=== PATIENT | female | born 1950 | race Caucasian/White ===

== ENCOUNTER 2018-01-03 11:44 | Inpatient (IN) | payer MEDICARE ==
[~2018-01-03] VITALS: Ht 167.6 cm; Wt 75.0 kg
[2018-01-03 12:18] LABS: APPEARANCE,URINE CLEAR (CLEAR); BILIRUBIN,URINE NEGATIVE (NEGATIVE); COLOR,URINE YELLOW (YELLOW); GLUCOSE, URINE (UA) NEGATIVE (NEGATIVE); KETONES,URINE NEGATIVE (NEGATIVE); LEUKOCYTE ESTERASE ,URINE NEGATIVE (NEGATIVE); NITRATE,URINE NEGATIVE (NEGATIVE); OCCULT BLOOD,URINE SMALL (NEGATIVE); PROTEIN,URINE NEGATIVE (NEGATIVE)
[2018-01-03 13:03] LABS: BASOPHILS % (AUTO) 0.4 % (0.0-5.0); EOSINOPHILS % (AUTO) 0.8 % (0.0-8.0); HEMATOCRIT 39.9 % (36-48); LYMPHOCYTES % (AUTO) 16.8 % (21.0-51.0); MEAN CORPUSCULAR HEMOGLOBIN 31.2 pg (27.0-33.0); MEAN CORPUSCULAR HGB CONC 34.3 g/dL (32.0-36.0); MEAN CORPUSCULAR VOLUME 91.1 fL (79-99); PLATELET COUNT (AUTO) 283 K/uL (130-400); RED BLOOD CELL COUNT(AUTO) 4.38 MIL/uL (4.00-5.50); RED CELL DISTRIBUTION WIDTH 13.4 % (11.0-15.5); WHITE BLOOD COUNT (AUTO) 11.6 K/uL (4.8-10.8)
[2018-01-03 13:07] LABS: BACTERIA,URINE Rare /HPF (None Seen); MUCUS,URINE Few LPF (None Seen); RBC,URINE 0-1 /HPF (0-1); SQUAMOUS EPITHELIAL CELL,UR Rare /HPF (0-2); WBC,URINE 0-1 /HPF (0-1)
[2018-01-03 13:26] LABS: CREATININE 0.7 mg/dL (0.5-1.5)
[2018-01-03 13:33] LABS: ALBUMIN 2.9 g/dL (3.5-5.0); BILIRUBIN,TOTAL 0.3 mg/dL (0.2-1.0); TOTAL PROTEIN, SERUM 6.9 g/dL (6.0-8.3)
[2018-01-03] MEDS ORDERED: ZOSYN 3.375GM+NS 50ML 50 ML IV ONE (14:21)
[2018-01-03] MEDS ORDERED: SODIUM CHLORIDE 0.9% 50 ML IV ONE (14:21)
[2018-01-03] MEDS ORDERED: METRONIDAZOLE 500 MG TABLET ONE (14:40)
[2018-01-03] MEDS ORDERED: ONDANSETRON HCL 4 MG/2 ML VIAL ONE (15:13)
[2018-01-03] MEDS ORDERED: MORPHINE SULFATE 2 MG/ML 1ML SYG ONE (15:13)
[2018-01-03] MEDS ORDERED: ONDANSETRON HCL 4 MG/2 ML VIAL IV PRN (17:00)
[2018-01-03] MEDS ORDERED: MORPHINE SULFATE 2 MG/ML 1ML SYG IV PRN (17:00)
[2018-01-03] MEDS ORDERED: HYDRALAZINE HCL 20 MG/ML VIAL IV PRN (17:00)
[2018-01-03] MEDS ORDERED: KETOROLAC TROMETHAMINE 15MG/ML IV PRN (17:00)
[2018-01-03 20:22] VITALS: BP 121/72
[2018-01-03] MEDS: ZOSYN 3.375GM+NS 50ML 50 ML IV SCH (21:58)
[2018-01-03] MEDS: FAMOTIDINE/PF 20 MG/2 ML VIAL IV SCH (21:58)
[2018-01-03] MEDS: SODIUM CHLORIDE 0.9% 1000ML 1,000 ML IV SCH ×2 (21:59→23:45)
[2018-01-03] MEDS ORDERED: MORPHINE SULFATE 8 MG/ML VIAL ONE (22:57)
[2018-01-03 23:23] VITALS: BP 129/76
[2018-01-04] MEDS ORDERED: MORPHINE SULFATE 5 MG/ML VIAL ONE ×2 (03:40→16:50)
[2018-01-04 03:50] VITALS: BP 127/79
[2018-01-04 04:32] LABS: MEAN CORPUSCULAR HEMOGLOBIN 31.4 pg (27.0-33.0); MEAN CORPUSCULAR HGB CONC 34.2 g/dL (32.0-36.0); MEAN CORPUSCULAR VOLUME 91.8 fL (79-99); PLATELET COUNT (AUTO) 278 K/uL (130-400); RED BLOOD CELL COUNT(AUTO) 3.92 MIL/uL (4.00-5.50); RED CELL DISTRIBUTION WIDTH 13.6 % (11.0-15.5); WHITE BLOOD COUNT (AUTO) 10.5 K/uL (4.8-10.8)
[2018-01-04 04:43] LABS: CREATININE 0.8 mg/dL (0.5-1.5); POTASSIUM 3.9 mmol/L (3.5-5.1)
[2018-01-04] MEDS: ZOSYN 3.375GM+NS 50ML 50 ML IV SCH (06:10)
[2018-01-04 08:00] VITALS: BP 114/70
[2018-01-04] MEDS: FAMOTIDINE/PF 20 MG/2 ML VIAL IV SCH ×2 (08:01→20:41)
[2018-01-04] MEDS: SODIUM CHLORIDE 0.9% 1000ML 1,000 ML IV SCH ×3 (08:01→18:42)
[2018-01-04] MEDS ORDERED: MORPHINE SULFATE 10 MG/ML 1ML VIAL ONE (08:15)
[2018-01-04 11:00] VITALS: BP 133/74
[2018-01-04] MEDS: LEVOFLOXACIN 500 MG/D5W 100 ML 100 ML IV SCH (13:19)
[2018-01-04] MEDS: METRONIDAZOLE 500MG/100ML BAG 100 ML IV SCH ×2 (15:39→22:41)
[2018-01-04 16:00] VITALS: BP 117/69
[2018-01-04 19:15] VITALS: BP 113/57
[2018-01-04] MEDS ORDERED: CLONAZEPAM 0.5 MG TABLET PO PRN (21:00)
[2018-01-04] MEDS ORDERED: CLONAZEPAM 0.5 MG TABLET ONE (21:06)
[2018-01-04 23:05] VITALS: BP 107/51
[2018-01-05 03:05] VITALS: BP 114/65
[2018-01-05 05:12] LABS: BASOPHILS % (AUTO) 0.9 % (0.0-5.0); EOSINOPHILS % (AUTO) 0.4 % (0.0-8.0); HEMATOCRIT 35.3 % (36-48); LYMPHOCYTES % (AUTO) 15.2 % (21.0-51.0); MEAN CORPUSCULAR HEMOGLOBIN 30.6 pg (27.0-33.0); MEAN CORPUSCULAR HGB CONC 33.4 g/dL (32.0-36.0); MEAN CORPUSCULAR VOLUME 91.5 fL (79-99); MONOCYTES % (AUTO) 6.1 % (3.0-13.0); NEUTROPHILS % (AUTO) 77.4 % (40.0-77.0); PLATELET COUNT (AUTO) 273 K/uL (130-400); RED BLOOD CELL COUNT(AUTO) 3.86 MIL/uL (4.00-5.50); RED CELL DISTRIBUTION WIDTH 13.5 % (11.0-15.5); WHITE BLOOD COUNT (AUTO) 12.1 K/uL (4.8-10.8)
[2018-01-05 05:26] LABS: CREATININE 0.7 mg/dL (0.5-1.5)
[2018-01-05] MEDS: METRONIDAZOLE 500MG/100ML BAG 100 ML IV SCH ×3 (06:14→22:24)
[2018-01-05 07:40] VITALS: BP 126/74
[2018-01-05 08:14] LABS: BASOPHILS % (AUTO) 0.2 % (0.0-5.0); EOSINOPHILS % (AUTO) 0.4 % (0.0-8.0); HEMATOCRIT 40.1 % (36-48); LYMPHOCYTES % (AUTO) 13.9 % (21.0-51.0); MEAN CORPUSCULAR HEMOGLOBIN 30.8 pg (27.0-33.0); MEAN CORPUSCULAR HGB CONC 33.5 g/dL (32.0-36.0); MEAN CORPUSCULAR VOLUME 91.9 fL (79-99); MONOCYTES % (AUTO) 6.1 % (3.0-13.0); NEUTROPHILS % (AUTO) 79.4 % (40.0-77.0); PLATELET COUNT (AUTO) 328 K/uL (130-400); RED BLOOD CELL COUNT(AUTO) 4.36 MIL/uL (4.00-5.50); RED CELL DISTRIBUTION WIDTH 13.1 % (11.0-15.5)
[2018-01-05 08:29] LABS: CREATININE 0.8 mg/dL (0.5-1.5)
[2018-01-05] MEDS: SODIUM CHLORIDE 0.9% 1000ML 1,000 ML IV SCH ×3 (08:45→23:53)
[2018-01-05] MEDS: FAMOTIDINE/PF 20 MG/2 ML VIAL IV SCH ×2 (11:14→20:15)
[2018-01-05 11:39] VITALS: BP 130/71
[2018-01-05] MEDS: LEVOFLOXACIN 500 MG/D5W 100 ML 100 ML IV SCH (12:49)
[2018-01-05 16:00] VITALS: BP 129/71
[2018-01-05] MEDS ORDERED: ACETAMINOPHEN 325 MG TAB PO PRN (16:00)
[2018-01-05 20:12] VITALS: BP 131/77
[2018-01-06 00:12] VITALS: BP 110/58
[2018-01-06 04:12] VITALS: BP 133/74
[2018-01-06] MEDS: METRONIDAZOLE 500MG/100ML BAG 100 ML IV SCH ×3 (05:41→22:03)
[2018-01-06 08:00] VITALS: BP 127/78
[2018-01-06 08:00] LABS: BASOPHILS % (AUTO) 0.3 % (0.0-5.0); EOSINOPHILS % (AUTO) 0.4 % (0.0-8.0); LYMPHOCYTES % (AUTO) 13.5 % (21.0-51.0); MEAN CORPUSCULAR HEMOGLOBIN 30.5 pg (27.0-33.0); MEAN CORPUSCULAR HGB CONC 33.5 g/dL (32.0-36.0); MEAN CORPUSCULAR VOLUME 90.9 fL (79-99); MONOCYTES % (AUTO) 4.6 % (3.0-13.0); NEUTROPHILS % (AUTO) 81.2 % (40.0-77.0); PLATELET COUNT (AUTO) 310 K/uL (130-400); RED BLOOD CELL COUNT(AUTO) 4.18 MIL/uL (4.00-5.50); RED CELL DISTRIBUTION WIDTH 13.6 % (11.0-15.5); WHITE BLOOD COUNT (AUTO) 12.4 K/uL (4.8-10.8)
[2018-01-06 08:09] LABS: CREATININE 0.8 mg/dL (0.5-1.5); POTASSIUM 3.7 mmol/L (3.5-5.1)
[2018-01-06] MEDS: FAMOTIDINE/PF 20 MG/2 ML VIAL IV SCH ×2 (09:13→20:00)
[2018-01-06] MEDS: SODIUM CHLORIDE 0.9% 1000ML 1,000 ML IV SCH ×3 (09:18→23:14)
[2018-01-06 11:00] VITALS: BP 132/78
[2018-01-06] MEDS ORDERED: HYDROCODONE/ACETAMINOPHEN 5/325 MG TAB ONE (12:52)
[2018-01-06] MEDS: LEVOFLOXACIN 500 MG/D5W 100 ML 100 ML IV SCH (12:58)
[2018-01-06 16:00] VITALS: BP 125/77
[2018-01-06] MEDS: HYDROCODONE/ACETAMINOPHEN 5/325 MG TAB PO PRN (17:38)
[2018-01-06 19:33] VITALS: BP 115/72
[2018-01-07 00:08] VITALS: BP 120/71
[2018-01-07] MEDS: HYDROCODONE/ACETAMINOPHEN 5/325 MG TAB PO PRN ×4 (00:19→13:00)
[2018-01-07 04:08] VITALS: BP 125/71
[2018-01-07 04:58] LABS: HEMATOCRIT 34.6 % (36-48); MEAN CORPUSCULAR HEMOGLOBIN 31.3 pg (27.0-33.0); MEAN CORPUSCULAR HGB CONC 34.3 g/dL (32.0-36.0); MEAN CORPUSCULAR VOLUME 91.4 fL (79-99); PLATELET COUNT (AUTO) 332 K/uL (130-400); RED BLOOD CELL COUNT(AUTO) 3.79 MIL/uL (4.00-5.50); RED CELL DISTRIBUTION WIDTH 13.7 % (11.0-15.5); WHITE BLOOD COUNT (AUTO) 10.4 K/uL (4.8-10.8)
[2018-01-07 05:09] LABS: CREATININE 0.8 mg/dL (0.5-1.5); POTASSIUM 3.6 mmol/L (3.5-5.1)
[2018-01-07 05:44] LABS: BAND NEUTROPHILS % (MANUAL) 5 % (0-2); EOSINOPHILS % (MANUAL) 1 % (1-6); LYMPHOCYTES % (MANUAL) 23 % (22-44); MAN.DIFF COMMENT-IMPRESSION MANUAL DIFFERENTIAL; MONOCYTES % (MANUAL) 4 % (2-9); SEGMENTED NEUTROPHILS % 67 % (40-70)
[2018-01-07 05:45] LABS: PLATELET MORPHOLOGY COMMENT ADEQUATE
[2018-01-07] MEDS: METRONIDAZOLE 500MG/100ML BAG 100 ML IV SCH (05:47)
[2018-01-07] MEDS: SODIUM CHLORIDE 0.9% 1000ML 1,000 ML IV SCH (07:45)
[2018-01-07 07:52] VITALS: BP 122/77
[2018-01-07] MEDS: FAMOTIDINE/PF 20 MG/2 ML VIAL IV SCH (09:10)
[2018-01-07 11:00] VITALS: BP 130/75
[2018-01-07] MEDS ORDERED: LEVO500T2 PO (13:12)
[2018-01-07] MEDS ORDERED: METR500T PO (13:12)
== END 2018-01-07 14:30 | disposition home or self-care (01) | DRG 392 ==
LOC: EDH 11:44 → EDHIP 15:06 → 4BH 18:44
PROVIDERS: ADMIT Hospitalist; ATTEND Hospitalist
DX: K57.80 Diverticulitis of intestine, part unspecified, with perforation and abscess without bleeding (principal); K59.00 Constipation, unspecified; I10 Essential (primary) hypertension; E11.9 Type 2 diabetes mellitus without complications; Z82.49 Family history of ischemic heart disease and other diseases of the circulatory system; Z83.3 Family history of diabetes mellitus
CPT/HCPCS: 36415; 74176; 80048; 80053; 81001; 85025; 85027; 87324; J1956; J2270; J2405; J2543; J3490; J7030